=== PATIENT | female | born 1990 | race Caucasian/White ===

== ENCOUNTER 2018-07-20 12:09 | Emergency (ER) | payer BC ==
[~2018-07-20] VITALS: Ht 160 cm; Wt 104.4 kg
[2018-07-20 13:28] LABS: BASOPHILS % 0.5 % (0.0-2.0); EOSINOPHILS % 1.9 % (0.0-5.0); HEMATOCRIT. 39.1 % (36.0-48.0); LYMPHOCYTES % 27.4 % (20.0-50.0); MEAN CORPUSCULAR HEMOGLOBIN 29.6 pg (28.0-32.0); MEAN CORPUSCULAR VOLUME 88.8 fL (81.0-99.0); MEAN PLATELET VOLUME 8.4 fl (7.4-10.4); MONOCYTES % 6.3 % (2.0-8.0); NEUTROPHILS % 63.9 % (40.0-76.0); PLATELET 298 x1000/uL (130-400); RED BLOOD CELL COUNT 4.41 mill/uL (4.2-5.4); RED CELL DISTRIBUTION WIDTH 13.6 % (11.6-14.6)
[2018-07-20 13:36] LABS: PARTIAL THROMBOPLASTIN TIME 28.6 sec (23.4-31.0); PROTHROMBIN TIME 9.9 sec (9.1-11.1)
[2018-07-20 13:43] LABS: CHLORIDE 104 mEq/L (98-107)
[2018-07-20 14:17] LABS: CLARITY URINE CLEAR (CLEAR); COLOR URINE YELLOW (YELLOW); KETONES URINE NEGATIVE (NEGATIVE); LEUKOCYTE ESTERASE URINE NEGATIVE (NEGATIVE); NITRITE URINE NEGATIVE (NEGATIVE); OCCULT BLOOD URINE NEGATIVE (NEGATIVE); PROTEIN URINE NEGATIVE (NEGATIVE); SPECIFIC GRAVITY URINE 1.021 (1.005-1.030)
[2018-07-20 15:45] VITALS: BP 130/59
== END 2018-07-20 16:00 | disposition home or self-care (01) ==
LOC: ER 12:09
DX: R10.9 Unspecified abdominal pain (principal); R50.9 Fever, unspecified; R11.0 Nausea
CPT/HCPCS: 36415; 74176; 80053; 81003; 81025; 83690; 85025; 85610; 85730; 99285

== ENCOUNTER 2018-10-02 01:25 | Emergency (ER) | payer BC ==
[~2018-10-02] VITALS: Ht 160 cm; Wt 102.0 kg
[2018-10-02 01:31] VITALS: BP 141/70
[2018-10-02] MEDS ORDERED: VISCOUS LIDOCAINE 2% 15 ML UDC MM ONE (03:00)
== END 2018-10-02 04:49 | disposition home or self-care (01) ==
LOC: ER 01:25
DX: T16.2XXA Foreign body in left ear, initial encounter (principal); X58.XXXA Exposure to other specified factors, initial encounter; Y93.89 Activity, other specified; Y92.89 Other specified places as the place of occurrence of the external cause; Y99.8 Other external cause status; Z91.018 Allergy to other foods
CPT/HCPCS: 69200; 99284